=== PATIENT | female | born 1960 | race Caucasian/White ===

== ENCOUNTER → 2018-11-02 | Outpatient (CLI) | payer BC ==
--- NOTE | 2018-11-03 13:01 | MM ---
Reason for exam: screening (asymptomatic). Last mammogram was performed 2 years and 1 month ago. History: Patient is postmenopausal. Physical Findings: A clinical breast exam by your physician is recommended on an annual basis and results should be correlated with mammographic findings. MG Screening Mammo w CAD Bilateral CC and MLO view(s) were taken. Prior study comparison: September 20, 2016, mammogram. November 07, 2013, mammogram. The breast tissue is heterogeneously dense. This may lower the sensitivity of mammography. There are benign appearing round calcifications bilaterally. There is no discrete abnormality. ASSESSMENT: Benign, BI-RAD 2 RECOMMENDATION: Routine screening mammogram of both breasts in 1 year.
== END ==
LOC: RADMAMWWP 11:03
PROVIDERS: ATTEND Obstetrics & Gynecology Obstetrics
DX: Z12.31 Encounter for screening mammogram for malignant neoplasm of breast (principal)
CPT/HCPCS: 77067

== ENCOUNTER 2021-01-09 16:01 | Emergency (ER) | payer BC ==
[2021-01-09] MEDS ORDERED: ACETAMINOPHEN TAB 500 MG TAB PO STA (16:20)
--- NOTE | 2021-01-09 16:25 | ED ---
Extremity Problem HPI - General Chief complaint: Extremity Problem,Nontraumatic Stated complaint: lt leg pain Source: patient, family (Daughter), RN notes reviewed, old records reviewed Mode of arrival: wheelchair Limitations: no limitations - History of Present Illness Initial comments: 60-year-old white female patient, alert and oriented 4, presents to the emergency room with her daughter complaining of left lower extremity pain for 2 weeks. Patient states that she went to the urgent care and they gave her steroids and a muscle relaxer but states that the pain has not improved. Patient denies any swelling or injury. She denies any medical history and no medications on a daily basis. Patient denies smoking history. She states that the pain is 10 out of 10 and is throbbing. It gets better with elevation. Patient states that this is never happened before. MD Complaint: extremity pain -: week(s) (2) Location: left, lower extremity History of Same: No Radiation: none Severity scale (1-10): 10 Quality: other Consistency: constant Improves with: elevation Worsens with: weight bearing, walking Associated Symptoms: denies other symptoms - Related Data Home Medications Medication Instructions Recorded Confirmed Ascorbic Acid [Vitamin C] 500 mg PO DAILY 01/09/21 01/09/21 Calcium/Magnesium/Zinc 1 tab PO DAILY 01/09/21 01/09/21 [Igreiqu-Arhnenbwr-Prav Tablet] Cholecalciferol [Vitamin D3 (25 25 mcg PO DAILY 01/09/21 01/09/21 Mcg = 1000 Iu)] Cyanocobalamin (Vitamin B-12) 1,000 mcg PO DAILY 01/09/21 01/09/21 [Vitamin B-12] Methocarbamol [Robaxin-750] 750 mg PO QID PRN 01/09/21 01/09/21 predniSONE See Taper PO DAILY 01/09/21 01/09/21 Allergies Allergy/AdvReac Type Severity Reaction Status Date / Time No Known Allergies Allergy Verified 01/09/21 16:31 Review of Systems ROS Statement: Those systems with pertinent positive or pertinent negative responses have been documented in the HPI. ROS Other: All systems not noted in ROS Statement are negative. Past Medical History Past Medical History: No Reported History History of Any Multi-Drug Resistant Organisms: None Reported Past Surgical History: No Surgical Hx Reported Past Psychological History: No Psychological Hx Reported Smoking Status: Former smoker Past Alcohol Use History: None Reported Past Drug Use History: None Reported General Exam Limitations: no limitations General appearance: alert, in no apparent distress Head exam: Present: atraumatic, normocephalic, normal inspection Eye exam: Present: normal appearance, PERRL, EOMI. Absent: scleral icterus, conjunctival injection, periorbital swelling ENT exam: Present: normal exam, normal oropharynx, mucous membranes moist Neck exam: Present: normal inspection, full ROM. Absent: tenderness, meningismus, lymphadenopathy, thyromegaly Respiratory exam: Present: normal lung sounds bilaterally. Absent: respiratory distress, wheezes, rales, rhonchi, stridor, chest wall tenderness, accessory muscle use, decreased breath sounds, prolonged expiratory Cardiovascular Exam: Present: regular rate, normal rhythm, normal heart sounds. Absent: systolic murmur, diastolic murmur, rubs, gallop, clicks GI/Abdominal exam: Present: soft, normal bowel sounds. Absent: distended, tenderness, guarding, rebound, rigid Extremities exam: Present: normal inspection, full ROM, normal capillary refill. Absent: tenderness, pedal edema, joint swelling, calf tenderness Left Knee exam: Present: normal inspection, full ROM. Absent: tenderness Lower Leg exam: Present: normal inspection, full ROM, tenderness, Homans' sign. Absent: swelling, abrasion, laceration, ecchymosis, deformity, crepitus, dislocation, erythema, palpable cord Ankle exam: Present: normal inspection, full ROM. Absent: tenderness, swelling Foot/Toe exam: Present: normal inspection, full ROM. Absent: tenderness, swelling Neurovascular tendon exam: Present: no vascular compromise. Absent: abnormal cap refill, motor deficit, sensory deficit, tendon deficit, extremity cold to touch, pallor, foot drop Back exam: Present: normal inspection, full ROM. Absent: tenderness, CVA tenderness (R), CVA tenderness (L), muscle spasm, paraspinal tenderness, vertebral tenderness, rash noted Neurological exam: Present: alert, oriented X3, CN II-XII intact Psychiatric exam: Present: normal affect, normal mood Skin exam: Present: warm, dry, intact, normal color. Absent: rash, cyanosis, diaphoretic, erythema, urticaria, petechiae, pallor, mottled, abrasion Course Vital Signs 01/09/21 16:03 Temperature 97.8 F Pulse Rate 87 Respiratory 20 Rate Blood Pressure 144/89 O2 Sat by Pulse 96 Oximetry Medical Decision Making - Medical Decision Making Left leg is negative for DVT by ultrasound. Patient has negative Homans sign there is no swelling or redness, pedal pulses are equal and bilateral. Capillary refill is less than 2 seconds to bilateral lower extremities. Patient is able to ambulate. Denies any back pain denies any injuries. Patient states that the pain feels like a heaviness and gets better with elevation. This is likely venous pain. Patient will be discharged home to follow up with primary care doctor. Discussed with Dr. White was agreeable to this plan of care. Disposition Clinical Impression: Leg pain, left Disposition: HOME SELF-CARE Condition: Good Instructions (If sedation given, give patient instructions): Leg Pain (ED) Additional Instructions: Ezequiel wear compression socks, follow-up with the primary care doctor in 1 week. Return if any worsening pain or shortness of breath or chest pain. Is patient prescribed a controlled substance at d/c from ED?: No Referrals: None,Stated [Primary Care Provider] - 1-2 days Candi Ge MD [STAFF PHYSICIAN] - 1-2 days Time of Disposition: 18:04
--- NOTE | 2021-01-09 17:50 | US ---
EXAMINATION TYPE: US venous doppler duplex LE LT DATE OF EXAM: 01/09/2021 5:41 PM COMPARISON: NONE CLINICAL HISTORY: pain. Left knee and lower leg pain x 3 weeks; patient denies swelling; unable to be ar weight on left leg SIDE PERFORMED: Left TECHNIQUE: The lower extremity deep venous system is examined utilizing real time linear array sonog roberto with graded compression, doppler sonography and color-flow sonography. VESSELS IMAGED: Common Femoral Vein Deep Femoral Vein Greater Saphenous Vein * Femoral Vein Popliteal Vein Small Saphenous Vein * Proximal Calf Veins (* superficial vessels) Left Leg: Negative for DVT IMPRESSION: Normal exam. No sign of deep vein thrombosis in the left leg.
[2021-01-09 18:24] VITALS: BP 132/91; PULSE 84; RESP 18; TEMP 98.2
== END 2021-01-09 18:14 | disposition home or self-care (01) ==
LOC: EC 16:01
DX: M79.605 Pain in left leg (principal); Z87.891 Personal history of nicotine dependence
CPT/HCPCS: 99283

== ENCOUNTER → 2021-02-27 | Outpatient (CLI) | payer BC ==
--- NOTE | 2021-03-02 09:49 | MM ---
Reason for exam: screening (asymptomatic). Last mammogram was performed 2 years and 4 months ago. History: Patient is postmenopausal. Physical Findings: A clinical breast exam by your physician is recommended on an annual basis and results should be correlated with mammographic findings. MG Screening Mammo w CAD Bilateral CC and MLO view(s) were taken. Prior study comparison: November 02, 2018, bilateral MG screening mammo w CAD. September 20, 2016, mammogram. There are scattered fibroglandular densities. There are benign appearing round calcifications bilaterally. There is no discrete abnormality. ASSESSMENT: Benign, BI-RAD 2 RECOMMENDATION: Routine screening mammogram of both breasts in 1 year.
== END | disposition home or self-care (01) ==
LOC: RADMAMWWP 09:09
PROVIDERS: ATTEND Obstetrics & Gynecology Obstetrics
DX: Z12.31 Encounter for screening mammogram for malignant neoplasm of breast (principal); Z78.0 Asymptomatic menopausal state
CPT/HCPCS: 77067